=== PATIENT | male | born 1945 | race Caucasian/White ===

== ENCOUNTER 2019-05-25 14:35 | Outpatient (CLI) | payer MEDICARE ==
[~2019-05-25 14:35] MED LIST: Iopamidol-370 76% 500 ML 1 ML ONE
--- NOTE | 2019-05-25 16:01 | CT ---
CT ABDOMEN WITH CONTRAST CT PELVIS WITH CONTRAST: DATE: 05/25/2019. HISTORY: A 73-year-old male with general abdominal pain, nausea, and bloating. COMPARISON: No prior CTs of abdomen or pelvis. TECHNIQUE: IV injection of iodinated contrast media: 70 mL of Isovue 370. Oral contrast media: Administered. FINDINGS: Approximately 10-20% volume of the stomach has herniated into the mediastinum. This hiatal hernia wa s demonstrated on previous chest CT of 11/04/2012. It may be minimally larger now. The previous chest CT demonstrated multiple small focal hypodense lesions scattered in the left and r ight lobes of the liver, too small to definitively characterize. There has been very slow interval g rowth of some of these. Two of the small ones located inferiorly, one in hepatic segment 4B, approxi mately 1.5 cm, and another one in hepatic segment 8 also measuring 1.5 cm, have slightly irregular ma rgins. They probably were scanned at different phases of enhancement compared to the previous, which would account for apparent difference in sizes, and could represent small hemangiomas. Another lesi on in hepatic segment 2, measuring approximately 1.5 x 2 cm, has a density of 17 HU, and may be a cys t with hemorrhagic or proteinaceous contents. Lack of high degree growth during the interval suggest s that none of these are malignant. A 2 cm cyst at upper pole parenchyma right kidney is minimally larger than in 2013. Much larger 5.5 x 5.5 x 6.5 cm simple exophytic pedunculated cyst protruding from the medial right re nal lower pole cortex on the current CT, was outside of the scanned levels on the previous chest CT. Tiny focal hypodense lesion approximately 1 cm in size in medial aspect of left renal upper pole ace ex is larger than it was previously. This is probably another cyst. No pyelonephritis, hydronephrosis, abdominal aortic aneurysm, small bowel dilation, ascites, or pneum operitoneum. No colonic diverticulitis. Scattered diverticula along the descending and sigmoid colo n. Normal appendix. Mild focal bilateral adrenal enlargement is unchanged and benign. No splenomegaly. Normal pancreas. No pleural effusion. There is a superior process of the prostate gland that invagi nates the base of the urinary bladder lumen. The urinary bladder is mildly distended and has mild mu ral thickening. IMPRESSION: 1. Small to moderate sized sliding hiatal hernia. 2. Multiple focal small lesions in the liver and bilateral kidneys, all highly likely to be benign. 3. Large benign exophytic cyst arising from right renal lower pole. 4. No acute or aggressive process identified. 5. Evidence for BPH (benign prostatic hyperplasia. This does not necessarily rule out occult, conco mitant prostate cancer). 6. Signs suggestive of at least mild chronic bladder outlet obstruction, by the prostate enlargement . ERICK Rahman POS: [facility]
== END 2019-05-25 14:36 | disposition home or self-care (01) ==
LOC: BICCT 14:35
PROVIDERS: ATTEND Physician Assistant Medical
DX: R10.9 Unspecified abdominal pain (principal); K44.9 Diaphragmatic hernia without obstruction or gangrene; K76.9 Liver disease, unspecified; N28.9 Disorder of kidney and ureter, unspecified; N28.1 Cyst of kidney, acquired; N40.0 Benign prostatic hyperplasia without lower urinary tract symptoms
CPT/HCPCS: 74177; 82565; Q9967

== ENCOUNTER 2019-06-09 10:50 | Outpatient (CLI) | payer MEDICARE ==
--- NOTE | 2019-06-09 13:18 | CT ---
EXAM: CT Abdomen W WO Con PROVIDED CLINICAL HISTORY: Liver mass. Prior CT scan of the abdomen demonstrated hypodense hepatic lesions. History of multiple myeloma. COMPARISON: CT abdomen on 05/25/[address] thorax on 11/04/2012 FINDINGS: Calcified granuloma at the right lung base is again seen with minimal atelectasis at the left lung ba se. Coronary artery calcifications are seen. Again noted is evidence of a hiatal hernia with the fundus and proximal body of the stomach above the level of the hemidiaphragms. Multiple small hypodense lesions are again seen scattered in the right and left hepatic lobes of the liver. The larger hypodense lesion in the lateral segment left hepatic lobe measuring 1.6 cm does demonstrate fluid attenuation with the small hypodense lesion anterior segment right hepatic lobe als o demonstrating fluid attenuation. The lesion left hepatic lobe is mildly larger in size compared to study in 2013, but the remaining lesions throughout each lobe the liver have not significantly myla nged in size.. There has been no significant interval change in appearance of these cystic lesions in each lobe of the liver again suggests a benign finding. Splenic granuloma is again present. Hypodense superior pole right renal lesion is again seen and unchanged demonstrating characteristics most compatible with a cyst. The larger exophytic hypodense lesion inferior pole measuring 6.5 cm is again seen which does not demonstrate enhancement and is most compatible with a cyst. A tiny calci fication is seen along the posterior margin of the cyst. Subcentimeter too small to characterize hypodense lesion in the superior pole left kidney is stable. The pancreas and bilateral adrenal glands demonstrate a normal CT appearance. Vascular calcifications are seen in the abdominal aorta and involving the iliac arteries. Dorsal column stimulator leads are seen in the central spinal canal of the thoracic spine. There has been no interval change from prior exam. IMPRESSION: 1. Stable small to moderate-sized hiatal hernia. 2. Stable small scattered hypodense cystic lesions seen throughout each lobe the liver. A few of the hypodense lesions are slightly larger in size compared to study in 2013, but the majority of the lesions are overall stable in size suggesting a benign finding. 3. Bilateral renal cysts.
[2019-06-09] MEDS ORDERED: Iopamidol-370 76% 500 ML 1 ML ONE (14:39)
== END 2019-06-09 10:51 | disposition home or self-care (01) ==
LOC: BICCT 10:50
PROVIDERS: ATTEND Physician Assistant Medical
DX: K76.9 Liver disease, unspecified (principal); K44.9 Diaphragmatic hernia without obstruction or gangrene; K76.89 Other specified diseases of liver; N28.1 Cyst of kidney, acquired
CPT/HCPCS: 74170; Q9967

== ENCOUNTER 2020-04-20 16:00 | Emergency (ER) | payer MEDICARE ==
[2020-04-20 16:23] LABS: #Lymphocytes 0.7 thou/uL (1.20-3.40); #Monocytes 0.4 thou/uL (0.11-0.59); #Neutrophils 3.5 thou/uL (1.40-6.50); %Eosinophils 0.3 % (0.0-10.0); %Lymphocytes 14.9 % (21.0-51.0); %Monocytes 9.5 % (0.0-10.0); %Neutrophils 75.4 % (42.0-75.0); Hemoglobin 11.7 g/dL (14.0-18.0); Mean Corpuscular HGB CONC 33.5 g/dL (32.0-36.0); Mean Corpuscular Hemoglobin 31.8 pg (27.0-31.0); Mean Corpuscular Volume 95.1 fL (78.0-98.0); Platelet Count 169 thou/uL (130-400); RBC Distribution Width 11.7 % (11.5-14.5); Red Blood Cell (RBC) Count 3.68 mill/uL (4.70-6.10); White Blood Cell (WBC) Count 4.6 thou/uL (4.8-10.8)
[2020-04-20 16:49] LABS: ALT (SGPT) 19 U/L (8-55); AST (SGOT) 23 U/L (5-34); Albumin 3.7 g/dL (3.4-4.8); Alkaline Phosphatase 100 U/L (40-110); Anion Gap 14 mmol/L (10-20); BUN (Urea Nitrogen) 17 mg/dL (8.4-25.7); Bilirubin, Total 0.5 mg/dL (0.2-1.2); CK (CPK) 45 U/L (30-200); Calc. Creatinine Clearance 0 mL/min (70-130); Calcium 8.3 mg/dL (7.8-10.44); Carbon Dioxide 24 mmol/L (23-31); Chloride 104 mmol/L (98-107); Globulin 2.6 g/dL (2.4-3.5); Glucose 88 mg/dL (83-110); Potassium 4.1 mmol/L (3.5-5.1); Protein, Total 6.3 g/dL (5.8-8.1); Sodium 138 mmol/L (136-145)
--- NOTE | 2020-04-20 17:14 | CT ---
CT arteriogram chest with IV contrast and 3-D imaging HISTORY: Dyspnea. Chest pain. FINDINGS: There is good contrast opacification pulmonary arteries and thoracic aorta with normal bran tee of the great vessels at the aortic arch. No mediastinal adenopathy. Coronary artery stents are evident. Approximately one third of the stomach is above the level of the diaphragm. Dorsal column stimulator leads are apparent within the posterior aspect of the thoracic spine. Lobula r cysts of the liver are again demonstrated. A 1.3 cm oval densely calcified lesion at the right posterolateral lung base is stable and may repres ent a hamartoma. Throughout each lung, there are subtle ill-defined patchy areas of peripheral groundglass infiltrate, most pronounced in the lower lobes. No lobar consolidation or pneumothorax. IMPRESSION : No evidence of pulmonary embolus. Bilateral infiltrates in a pattern often seen with viral pneumonitis. Please correlate clinically reg arding other signs and symptoms of COVID pneumonitis. Hiatal hernia.
[2020-04-20 23:17] LABS: SARS-CoV-2 MS2 Positive; SARS-CoV-2 N Gene Positive; SARS-CoV-2 S Gene Positive; SARS-CoV-2 by NAA DETECTED (NotDetected); SARS-CoV-2 orf1ab Positive
--- NOTE | 2020-04-23 06:57 | RAD ---
XR Chest 1 View Portable HISTORY: Dyspnea, chest pain COMPARISON: 02/26/2020 FINDINGS: The heart size is normal. The lungs are well expanded without focal areas of consolidation, pneumothorax or pleural effusions.. Hiatal hernia and dorsal column stimulating leads are again seen. IMPRESSION: No radiographic evidence of acute cardiopulmonary process.
== END 2020-04-20 18:24 | disposition home or self-care (01) ==
LOC: ERS 16:00
DX: D72.819 Decreased white blood cell count, unspecified (principal); R06.02 Shortness of breath; E78.5 Hyperlipidemia, unspecified; I10 Essential (primary) hypertension; F17.220 Nicotine dependence, chewing tobacco, uncomplicated; Z79.899 Other long term (current) drug therapy
CPT/HCPCS: 71045; 71275; 80053; 82550; 83880; 84484; 85025; 85379; 93005; 99285; U0003; 36415; 87635; Q9967

== ENCOUNTER 2020-08-07 12:03 | Outpatient (CLI) | payer MEDICARE | END 2020-08-07 12:04 | disposition home or self-care (01) | LOC: BICRAD 12:03 | PROVIDERS: ATTEND Internal Medicine Critical Care Medicine | DX: R06.00 Dyspnea, unspecified (principal); I25.10 Atherosclerotic heart disease of native coronary artery without angina pectoris; J84.10 Pulmonary fibrosis, unspecified | CPT/HCPCS: 71046 ==